=== PATIENT | female | born 1950 | race Caucasian/White ===

== ENCOUNTER 2018-06-26 05:57 | Day surgery (SDC) | payer MEDICARE ==
[2018-06-21 15:24] LABS: BASOPHILS % (AUTO) 0.4 % (0-1); EOSINOPHILS # (AUTO) 0.1 X10'3 (0-0.9); EOSINOPHILS % (AUTO) 1.7 % (0-6); LYMPHOCYTES # (AUTO) 1.2 X10'3 (1.1-4.8); LYMPHOCYTES % (AUTO) 15.6 % (21-51); MEAN CORPUSCULAR HEMOGLOBIN 31.8 PG (27.0-31.0); MEAN CORPUSCULAR VOLUME 93.4 FL (78-98); MEAN PLATELET VOLUME 7.6 FL (7.4-10.4); MONOCYTES # (AUTO) 0.5 X10'3 (0-0.9); MONOCYTES % (AUTO) 6.6 % (2-12); NEUTROPHILS # (AUTO) 5.6 X10'3 (1.8-7.7); NEUTROPHILS % (AUTO) 75.7 % (42-75); PRE OP HEMATOCRIT 39.8 % (35.0-45.0); PRE OP HEMOGLOBIN 13.6 g/dL (12.0-16.0); PRE OP PLATELET COUNT 333 X10'3 (140-440); RED BLOOD COUNT 4.26 X10'6 (4.20-5.60); RED CELL DISTRIBUTION WIDTH 13.8 % (11.5-14.5)
[2018-06-21 15:39] LABS: CLARITY,URINE CLEAR (Clear); COLOR,URINE STRAW (Yellow); GLUCOSE, URINE NEGATIVE (Neg); KETONES,URINE NEGATIVE (Neg); LEUKOCYTE ESTERASE ,URINE NEGATIVE (Neg); NITRITES, URINE NEGATIVE (Neg); OCCULT BLOOD,URINE NEGATIVE (Neg); PROTEIN,URINE NEGATIVE (Neg); UA COLLECTION TYPE NON-SPECIFIED; UROBILINOGEN,URINE 0.2 E.U/dL (0.2-1.0)
[2018-06-21 15:39] LABS: ALBUMIN 4.1 G/DL (3.4-5.0); ALBUMIN/GLOBULIN RATIO 1.2 (1.1-1.5); ALKALINE PHOSPHATASE 97 IU/L (46-116); BLOOD UREA NITROGEN 17 MG/DL (7-18); BUN/CREATININE RATIO 19.8 (6.6-38.0); CHLORIDE 103 MMOL/L (99-107); CREATININE 0.86 MG/DL (0.40-0.90); PRE OP ALT 19 U/L (30-65); PRE OP ANION GAP 7 (8-16); PRE OP AST 17 U/L (10-37); PRE OP BILIRUB, TOTAL 0.3 MG/DL (0.0-1.0); PRE OP GLUCOSE 99 MG/DL (70-104); PRE OP POTASSIUM 3.8 MMOL/L (3.4-5.1); PRE OP SODIUM 139 MMOL/L (135-145); TOTAL CARBON DIOXIDE 29.2 MMOL/L (24-32); TOTAL PROTEIN 7.6 G/DL (6.4-8.2); eGFR 66 ML/MIN
[~2018-06-26] VITALS: Ht 162.6 cm; Wt 71.4 kg
[2018-06-26] VITALS (17 sets, daily range): BP systolic 103–149; BP diastolic 60–97
[~2018-06-26 05:57] MED LIST: AMLO2.5T2 PO; ANAS1TAB PO; CHOL100046 PO; Cefazolin 2GM/50ML dext iso,osmotic IVPB IV ONE; FERR324T4 PO; LEVO75TA PO; LOSA50TA3 PO; OMEP20CA10 PO; VITA1TAB20 PO; famotidine 20mg tablet PO ONE; ringers solution, lacted 1,000 ML IV SCH
[2018-06-26] MEDS ORDERED: LIDOcaine 1% (10mg/ml) 2ml vial ONE (06:27)
[2018-06-26] MEDS ORDERED: BUPIVAcaine/PF 2.5mg/ml (0.25%) 10ml vial ONE (07:49)
[2018-06-26] MEDS ORDERED: sevoflurane 250ml liquid IH ONE (08:32)
[2018-06-26] MEDS ORDERED: fentaNYL/PF 50MCG/1 ML 2ML syringe ONE (08:33)
[2018-06-26] MEDS ORDERED: midazolam 2 mg/2 ml injection ONE (08:34)
[2018-06-26] MEDS ORDERED: propofol inj 20 ML IV ONE (08:34)
[2018-06-26] MEDS ORDERED: ondansetron/PF 4mg/2ml inj ONE (08:48)
[2018-06-26] MEDS ORDERED: dexamethasone sod phosphate 4mg/ml inj. ONE (08:48)
[2018-06-26] MEDS ORDERED: ROPIVAcaine 0.5% (5mg/ml) 30ml vial ONE (08:57)
[2018-06-26] MEDS ORDERED: ringers solution, lacted 1,000 ML IV SCH (09:37)
[2018-06-26] MEDS ORDERED: morphine 4 MG/ML inj SYRINge IV PRN ×2 (09:40)
[2018-06-26] MEDS ORDERED: meperidine/PF 25mg/ml syringe IV PRN ×2 (09:40)
[2018-06-26] MEDS ORDERED: ondansetron/PF 4mg/2ml inj IV PRN (09:40)
[2018-06-26] MEDS ORDERED: proCHLORperazine 10 MG/2 ml inj IV PRN (09:40)
[2018-06-26] MEDS: meperidine/PF 25mg/ml syringe IV PRN ×2 (11:27→12:06)
== END 2018-06-26 14:20 | disposition home or self-care (01) ==
LOC: PAS 05:57
PROVIDERS: ATTEND Surgery
DX: K64.8 Other hemorrhoids (principal); K64.4 Residual hemorrhoidal skin tags; G47.33 Obstructive sleep apnea (adult) (pediatric); I10 Essential (primary) hypertension; K21.9 Gastro-esophageal reflux disease without esophagitis; E03.9 Hypothyroidism, unspecified; Z85.3 Personal history of malignant neoplasm of breast; Z90.49 Acquired absence of other specified parts of digestive tract; Z90.89 Acquired absence of other organs; Z92.21 Personal history of antineoplastic chemotherapy; Z92.3 Personal history of irradiation; Z79.899 Other long term (current) drug therapy; Z98.890 Other specified postprocedural states
CPT/HCPCS: 36415; 45330; 46250; 46947; 80053; 81003; 85025; 93005; A6224; A6449; J0690; J1100; J2175; J2250; J2405; J2704; J2795; J3010; J3490; J7120; A7000

== ENCOUNTER 2022-06-15 08:51 | Day surgery (SDC) | payer MEDICARE ==
[~2022-06-15] VITALS: Ht 160 cm; Wt 77.3 kg
[~2022-06-15 08:51] MED LIST changes: -Cefazolin 2GM/50ML dext iso,osmotic IVPB IV ONE; -OMEP20CA10 PO; +OMEP20CA15 PO; -famotidine 20mg tablet PO ONE; -ringers solution, lacted 1,000 ML IV SCH
[2022-06-15 09:00] VITALS: BP 143/77
[2022-06-15] MEDS ORDERED: CHOL400T57 PO (09:07)
[2022-06-15] MEDS ORDERED: ATOR20TA PO (09:09)
[2022-06-15] MEDS ORDERED: MIDAZolam 1 MG/ML 5ML VIAL ONE (09:11)
[2022-06-15] MEDS ORDERED: fentaNYL/PF 50MCG/1 ML 2ML syringe ONE (09:11)
[2022-06-15 11:10] VITALS: BP 140/75
[2022-06-15 11:20] VITALS: BP 129/74
[2022-06-15 11:30] VITALS: BP 128/76
[2022-06-15 11:40] VITALS: BP 147/78
== END 2022-06-15 11:45 | disposition home or self-care (01) ==
LOC: GI LAB 08:51
PROVIDERS: ATTEND Internal Medicine Gastroenterology
DX: Z09 Encounter for follow-up examination after completed treatment for conditions other than malignant neoplasm (principal); K63.5 Polyp of colon; K57.30 Diverticulosis of large intestine without perforation or abscess without bleeding; K64.8 Other hemorrhoids; Z86.010 Personal history of colon polyps; I10 Essential (primary) hypertension; Z79.899 Other long term (current) drug therapy; Z98.890 Other specified postprocedural states
CPT/HCPCS: 45385; C1773; G0500; J2250; J3010; J7030; Z7512; 88305; 99152; 99153; A4620

== ENCOUNTER 2025-07-23 09:54 | Observation (INO) | payer MEDICARE ==
--- NOTE | 2025-07-21 15:04 | ELECTROCARDIOGRAPH REPORT ---
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 PÉREZ Sheppard Measurements Intervals Byron Rate: 68 P: 29 KS: 121 QRS: -38 QRSD: 116 T: 55 QT: 429 QTc: 457 Interpretive Statements Sinus rhythm Incomplete left bundle branch block Left ventricular hypertrophy Anterior Q waves, possibly due to LVH Electronically Signed On 07-21-2025 19:25:[address] PÉREZ Sheppard Please click the below link to view image of tracing.
[~2025-07-23] VITALS: Ht 160 cm; Wt 74.3 kg
[2025-07-23] VITALS (24 sets, daily range): BP systolic 102–153; BP diastolic 60–83; PULSE 67–96; RESP 11–20; TEMP 97.5–98.1; O2SAT 93–100
[2025-07-23] MEDS: ringers solution, lacted 1,000 ML IV SCH ×3 (09:15→16:30)
[~2025-07-23 09:54] MED LIST changes: -ANAS1TAB PO; -CHOL100046 PO; +CHOL200013 PO; -FERR324T4 PO; +FERR325T28 PO; +LEVO50TA8 PO; -LEVO75TA PO; +LOSA-416 PO; -LOSA50TA3 PO; +METF-900 PO; +ROSU10TA72 PO; +VITA-290 PO; -VITA1TAB20 PO; +enalaprilat 1.25mg/ml 2ml vial IV PRN; +labetalol 20mg/4ml (5mg/ml) syringe IV PRN; +meperidine/PF 25mg/ml syringe IV PRN; +morphine 4 MG/ML inj SYRINge IV PRN; +ondansetron/PF 4mg/2ml inj IV PRN
[2025-07-23] MEDS: ceFAZolin 2gm/dext,iso 50mL 50 ML IV ONE (10:35)
[2025-07-23 11:37] LABS: CREATININE 0.64 MG/DL (0.40-0.90); TOTAL CARBON DIOXIDE 26.5 MMOL/L (24-32); eCRCL 64 ML/MIN; eGFR > 90 ML/MIN
[2025-07-23] MEDS ORDERED: BUPIVAcaine/PF 2.5mg/ml (0.25%) 10ml vial ONE (11:38)
[2025-07-23] MEDS ORDERED: LIDOcaine 1% (10mg/ml)w/preservative inj. 20ml MDV ONE (11:38)
[2025-07-23] MEDS ORDERED: BUPIVACAINE liposomal/PF 13.3 MG/ML 10mL vial IM ONE (11:38)
[2025-07-23] MEDS ORDERED: methylene blue (5mg/ml) 50mg/10ml ampul IV ONE (11:38)
[2025-07-23] MEDS ORDERED: ROPIVAcaine 0.5% (5mg/ml) 30ml vial ONE (12:07)
[2025-07-23] MEDS ORDERED: fentaNYL/PF 50MCG/1 ML 2ML syringe ONE (12:07)
[2025-07-23] MEDS ORDERED: midazolam 1 mg/ML 2ml injection ONE (12:07)
[2025-07-23] MEDS ORDERED: propofol 10mg/ml 20ml vial IV ONE (13:23)
[2025-07-23] MEDS ORDERED: dexamethasone sod phosphate 4mg/ml inj. ONE (13:23)
--- NOTE | 2025-07-23 13:29 | ANESTHESIA RECORDS ---
Nerve Block Providers to ~ Diagnosis: Nerve Block requested by: VIVIANA SERRANO DO Neuraxial/Peripheral Nerve Block requested for Post-operative analgesia by Trish westbrook DIAGNOSIS: Post-operative pain. (Body Area) Shoulder: [ ] Arm: [ ] Hand: [ ] Hip: [ ] Knee: [ ] Ankle: [ ] Foot: [ ] Leg: [ ] Abdomen: [ ] Other: [ Lt Breast & Axillary area ] Post-operative pain expected to be/is inadequately managed by oral or IV medicines. Regional anesthetic expected to facilitate rehabilitation and/or discharge from facility. Other:[ _] Procedure Performed: Other: Left PEC I & PEC II block Time out Done?: Yes Time of Time out: 12:47 Procedure Details: PROCEDURE DETAILS: Risks, benefits and alternatives explained Informed consent obtained, and patient wishes to proceed Conscious sedation with indicated monitors Patient positioned, pertinent anatomy defined, sterile technique used Needle used: [ ] 3 1/8 inch Stimuplex Ultra 22ga [x ] 4 inch Stimuplex Ultra 20ga [ ] 6 inch Stimuplex Ultra 20ga [ ] 6 inch, Quikbloc over the needle catheter set 20ga [ ] 4 inch Quikbloc over the needle catheter set 20ga [ ]Other: [ ] Loss of twitch @ [ N/A ]mA [x ] Single Injection [ ] Catheter Ultrasound Guidance Used: [x ] Yes [ ] No Attempts:[ once ] Medicines injected: [ ]Clonidine Amt:[ ] [x ]Dexamethasone Amt:[___3 mgs ] [x ]Ropivacaine Amt:[___0.5% 30 cc ] [ ]Bupivacaine Amt:[ ] [ ]Lidocaine Amt:[ ] [ ]Exparel 1.33%:[ ] [ ]Epinephrine Amt[ ] [ ]Other: [ ] Intermittent aspiration during local anesthetic administration No symptoms of intraneural or intravenous injection Patient tolerated procedure well Comments Left PECS I & PECS II block Procedure done under General anesthesia. Left Arm abducted and Linear probe is applied parasagitally below the Coracoid process and probe slid down and the ribs were identifies. Pectorals Major & Minor and Serratus anterior muscles were identified. Stimuplex 4 needle was used and inserted in plane and 20 cc of local anesthetic injected in plane between Serratus anterior & Pectoralis minor. 10 ccs was injected in between Pectoralis major and minor muscles. Separation of muscles in the facial planes was noted. KEYLA PLATA MD Jul 23, 2025 13:29
[2025-07-23] MEDS ORDERED: morphine 10mg/ml inj. ONE (13:36)
[2025-07-23] MEDS: methylene blue (5mg/ml) 50mg/10ml ampul IV ONE (13:45)
[2025-07-23] MEDS: BUPIVACAINE liposomal/PF 13.3 MG/ML 10mL vial IM ONE (13:54)
[2025-07-23] MEDS: BUPIVAcaine/PF 2.5mg/ml (0.25%) 10ml vial IJ ONE (13:56)
[2025-07-23] MEDS ORDERED: ondansetron/PF 4mg/2ml inj ONE (16:02)
[2025-07-23] MEDS ORDERED: acetaminophen 1,000mg/100ml IV 100 ML IV ONE (16:08)
--- NOTE | 2025-07-23 16:46 | OPERATIVE REPORT ---
Operative Report Providers to CC: VIVIANA SERRANO DO ~ Date of Procedure: Jul 23, 2025 Pre-Operative Diagnosis: left breast cancer Post-Operative Diagnosis SAME as PRE-Op Procedure Performed Left breast simple mastectomy, left axillary sentinel node biopsy, right breast excisional biopsy Surgeon: Dr.Lauren Serrano [employer] Straightener Agnieszka Sanders PA-C Anesthesiologist: Ronak Camilo Type of Anesthesia: General Findings: left axillary sentinel lymph nodes x2, scar tissue left axilla and lower inner left breast Complications None Prosthetics\Implants used: None Estimated Blood Loss: Less than 15 mL Specimen Removed: 1. Left breast skin sparing mastectomy, suture marked short superior long lateral 2. Left axillary sentinel lymph node #1 3. Left axillary sentinel lymph node #2 4. Right breast excisional biopsy suture marked short superior long lateral double deep (specimen contains two STEPHANIE markers) Description of Procedure: Gale is a 74-year-old female with a past medical history of left breast invasive ductal carcinoma treated with lumpectomy followed by radiation and chemotherapy. She has a new diagnosis of left breast cancer in the plan is for left skin sparing mastectomy and left axillary sentinel lymph node biopsy and right breast excisional biopsy x2 for papillomas. She will follow up with plastic surgeon Dr. Suggs at [facility] for mohini flap reconstruction of the left breast. April she is here today with the in the preoperative holding area and was seen and evaluated by myself and the anesthesiologist. The left shoulder was marked with my initials indicating that I would be performing a sentinel lymph node biopsy. She was taken to the operative suite and placed on table in supine position with the arms extended. The anesthesiologist administered general anesthesia with an LMA. He also performed a pecs one and two block of the left chest wall. 3 mL of methylene blue dye was injected at the periareolar location 3:00 and massaged for 4 minutes. The gamma probe was used to detect a hot spot in the breast and the axilla and the skin was marked in the left axillary skin. I used the STEPHANIE insole and heel stiffener probe to scan the right breast and a signal was detected at the 9:00 area about 4 cm from the nipple and the skin was marked. I only detected one signal. The patient was prepped and draped in a sterile fashion a time-out was performed and agreed upon. I started the surgery with a left skin sparing mastectomy. An elliptical proposed incision was marked with the marking pen. The incision was made with a 10 blade and extended through the deep dermal layer with the cutting on the cautery. A superior flaps were elevated with cat claw retractors and I dissected in the subcutaneous plane medial and laterally down to the chest wall, just inferior to the clavicle. I turned my attention to the inferior flap and dissected in the subcutaneous space as the inferior flap was elevated with a cat claw retractors down to the chest wall. The breast mound and fascia was excised off the pectoralis muscle and serratus anterior in the superior and inferior medial and lateral directions. Once the specimen was completely excised it was taken off the field and marked with short stitch superior and long suture lateral. During the dissection there was a lot of scar tissue in the lower pole of the breast tissue especially in the lower inner quadrant at the previous lumpectomy site. The cavity was irrigated and hemostasis was achieved with Bovie electrocautery. I turned my attention to the left axillary sentinel lymph node biopsy. I scanned the lower axillary space with the gamma probe and a hot signal was detected. I dissected through the axillary fascia and grafts the tissue with a signal was noted with a tonsil clamp. The lymph node was excised with the LigaSure and removed from the cavity. The lymph node was hot and blue with a count of 815. A 2nd additional lymph node was excised in the upper aspect of the axilla inferior to the axillary vein it was completely excised with the LigaSure as well and it is count was 200. Both lymph nodes were removed and placed in formalin. The axillary cavity was irrigated and hemostasis was achieved with Bovie electrocautery the fascia was closed with 3-0 Vicryl interrupted sutures. A JAMIE drain was placed in the lower outer quadrant. The 15 blade was used to make a stab incision and the drain was pulled into the cavity with a tonsil clamp. The drain was secured to the skin with a 3-0 nylon suture. The skin was closed with 3-0 Vicryl interrupted sutures and a 4-0 Monocryl running subcuticular stitch. I turned my attention to the right excisional biopsy. I scanned the right breast at the 9:00 aspect of the breast approximately 5 cm from the nipple. I made a periareolar incision after injection of 1% lidocaine with a 15 blade. I used the STEPHANIE insole and heel stiffener probe to guide my dissection where there was a signal and eventually the signal came stronger and the distance shoulder to about 6-7 mm. I excised around the signal in a circumferential manner and the the complete specimen was removed from the cavity. I did not detect a 2nd signal. The specimen was oriented with short stitch superior, long suture lateral, double suture deep and placed in the specimen radiograph board. The board was placed in the fact that trauma machine. And there was evidence of two clips and two STEPHANIE markers, indicating that the two papillomas were in one specimen. The cavity was irrigated and there was some scar tissue that I felt in the posterior aspect of the cavity I excised it as a posterior margin I marked it suture marked the final margin. That was also placed in formalin. The cavity was copiously irrigated hemostasis was achieved with Bovie electrocautery and the cavity was approximated with 3-0 atiya Vicryl suture and the skin was closed with 3-0 Vicryl interrupted sutures and a 4-0 Monocryl running subcuticular stitch. 0.25% Marcaine and Exparel mixture was injected at both surgical sites. Dressings were placed on both wounds. I used the Prineo Dermabond mesh system for both wounds. Fluff dressings and ABDs were placed over the mastectomy site and gauze with tape was placed over the incision of the right breast. The patient was completely Roge wrapped and tolerated the procedure well was taken to recovery in stable condition. All needle sponge counts were correct. Counts repoted as correct: Yes VIVIANA SERRANO DO Jul 23, 2025 16:46
[2025-07-23] MEDS ORDERED: dextrose 50%-water 50ml dispensing syringe IV PRN ×2 (18:55)
[2025-07-23] MEDS ORDERED: glucagon, human recombinant 1mg kit SUBCUT PRN (18:55)
[2025-07-23] MEDS ORDERED: DEXTROSE 15 GM of carb/4 tabs (each vial/BOTTLE has 4 tablets) PO PRN ×2 (18:55)
--- NOTE | 2025-07-23 18:56 | CONSULTATION REPORT - RESIDENT ---
Consult Providers to CC Resident Creating Document: GÓMEZ BRANTLEY, RES CC: JOCELINE CAMARENA MD History of Present Illness Reason for Admit\Complaint: Medical management of patient with breast cancer status post surgery History of Present Illness A 74-year-old female with PMH of [id number]-[id number] diabetes mellitus, HTN, hypothyroidism was operated for breast cancer on 07/23/2025 and consulted for medical management of the patient. Patient underwent right mastectomy and left lymph node excision biopsy on 07/23/2025. We were consulted by Dr. Martínez to manage medical conditions of the patient. Patient underwent Lexiscan one year ago for nonspecific back pain and muscle soreness which was negative. Patient endorses that she had cancer in the right breast many years ago that was treated and was continuously being monitored for mammography which picked up repeat cancer in the right breast requiring mastectomy. Patient endorses that breast cancer runs on the maternal side of the family Patient does not have any complaints at the moment. Allergies: Coded Allergies: No Known Allergies (Unverified , 06/25/18) Home Medications Home Medications Active Reported Ferrous Sulfate* (Ferrous Sulfate) 325 Mg Tablet 1 Tab PO DAILY Rosuvastatin Calcium 10 Mg Tablet 20 Mg PO HS D3-2000 (Cholecalciferol (Vitamin D3)) 50 Mcg (2000 Unit) Capsule 1 Cap PO QAM Levothyroxine Sodium 50 Mcg Tablet 1 Tab PO QAM@0700 30 Days Metformin ER* (Metformin HCl) 500 Mg Tab.sr.24h 1 Tab PO QPM Omeprazole 20 Mg Capsule. 1 Cap PO DAILY 30 Days Vitamin B Complex 1 Each Tablet 1 Tab PO QAM Norvasc* (Amlodipine Besylate) 2.5 Mg Tablet 5 Mg PO QPM Cozaar* (Losartan Potassium) 50 Mg Tablet 100 Mg PO QPM Past Medical History Past Medical History Breast cancer Hypothyroidism HTN Wcc-jrblxlr-nmkeevupi diabetes mellitus LUCIUS on CPAP GERD Osteoarthritis of right knee Past Surgical History Surgical History Comment Right total knee arthroplasty Appendectomy Left breast lumpectomy Hemorrhoidectomy Hysterectomy Bilateral blepharoplasty Family History Family History: FH: CABG (coronary artery bypass surgery) FATHER FH: CVA (cerebrovascular accident) MOTHER Maternal grandmother FH: diabetes mellitus FATHER MOTHER Past Social History Social History Comment Lives at home with Primary care: Manuela Sheets, previously Dr. Gomez Denies tobacco use, alcohol use, marijuana or illicit drug use Was exposed to passive smoking as a child Dr. Grier(sleep apnea) Dr. Mauricio Reed Exam Vitals: Vital Signs Date Time Temp Pulse Resp B/P (MAP) Pulse Ox O2 Delivery O2 Flow Rate FiO2 07/23/25 18:30 79 17 133/74 (93) 94 Nasal Cannula 2.0 07/23/25 16:18 96.6 General: General: Moderately nourished Elderly female, Alert, awake, oriented, not in acute distress HEENT: PERRLA, no icterus, pallor, lymphadenopathy, carotid bruit Respiratory system: Surgical dressing present on the left and right breast, with a drain filled with blood about 20 mL on the right breast. Bilateral vesicular breath sounds heard, no adventitious breath sounds CVS: S1-S2 heard, no murmurs/rubs/gallop GI: Soft, nontender, no organomegaly, no guarding/rigidity, bowel sounds present Neuro: No focal neurological deficits present Extremities: No edema cyanosis clubbing/deformities Musculoskeletal: A surgical scar present in the right knee Skin: Warm and dry Psych: Normal affect and mood Diagnostic Data Last Recorded Lab Results: 07/23/25 1045 Additional Plan Assessment: A 74-year-old female with past medical history of NIDDM, HTN, hypothyroidism, sleep apnea on CPAP presented to the ED after right mastectomy and left lymph node excision biopsy. Hospitalist team was consulted for medical management of the patient. Plan: Right breast carcinoma s/p mastectomy, left LN excision biopsy on 07/23/[address] Martínez HTN Continue amlodipine 2.5 mg, losartan 50 mg Hypothyroidism Follow up with TSH Continue levothyroxine 50 mcg Wzl-cfwabsu-yrhpvtuqy diabetes mellitus A1c in Nov,: 6.1 Continue metformin 500 mg Q 24 H Low-dose sliding scale insulin HLD Continue rosuvastatin 20 mg p.o. HS LUCIUS on CPAP Outpatient follow up GERD Protonix 40 mg p.o. Code status: Full code Diet: 70 g carb controlled DVT prophylaxis: SCD Disposition: Hospitalist will continue to follow labs and follow up with the patient Gómez Brantley MD Internal Medicine, PGY 2 Date of Service: Jul 23, 2025 Billing Provider: JOCELINE CAMARENA MD, SIVA, RES Jul 23, 2025 18:56
[2025-07-23 20:30] LABS: CHOL/HDL RATIO 5.4 (0.00-4.99); LDL CHOLESTEROL 171 MG/DL (50-100)
[2025-07-23] MEDS ORDERED: non-formulary drug (Metformin Hcl* (Metformin ER*) 1 TAB) PO SCH (21:00)
[2025-07-23] MEDS: INSULIN LISPRO 100 UNIT/ML INSULN.PEN MULTI-DOSE SQ SCH (21:32)
[2025-07-23] MEDS: ceFAZolin 2gm/dext,iso 50mL 50 ML IV SCH (23:58)
[2025-07-24 03:48] VITALS: RESP 16; O2SAT 98
[2025-07-24 04:41] LABS: MEAN PLATELET VOLUME 8.2 FL (7.4-10.4); RED CELL DISTRIBUTION WIDTH 14.1 % (11.5-14.5)
[2025-07-24 06:00] VITALS: BP 108/61; PULSE 67; RESP 17; TEMP 97.4; O2SAT 97
[2025-07-24] MEDS ORDERED: pantoprazole 40mg Tablet.DR PO SCH (08:00)
[2025-07-24] MEDS ORDERED: VITAMIN B COMPLEX PO SCH (08:00)
[2025-07-24 08:22] VITALS: RESP 17; O2SAT 97
[2025-07-24] MEDS: cholecalciferol (vitamin D3) 1,000 unit (25mcg) tablet PO SCH (08:22)
[2025-07-24] MEDS: pantoprazole 40mg Tablet.DR PO SCH (08:22)
[2025-07-24] MEDS: levoTHYROXINE 25mcg tablet PO SCH (08:22)
[2025-07-24 08:39] VITALS: RESP 17; O2SAT 97
--- NOTE | 2025-07-24 09:25 | PROGRESS NOTE ---
Progress Note Dictate Providers to CC CC: VIVIANA SERRANO DO ~ Central Line/PICC still needed: N\A Antibiotic Ordered?: Yes If Yes, Indications: Surgical prophylaxis MRSA Education MRSA Education Provided to pt: N/A Subjective Subjective Tolerated diet, ambulated, denies pain Objective Vitals Vital Signs Date Time Temp Pulse Resp B/P (MAP) Pulse Ox O2 Delivery O2 Flow Rate FiO2 07/24/25 08:39 17 97 07/24/25 06:00 97.4 67 108/61 (77) Bi-pap/CPAP 07/24/25 03:48 2.0 Lab Results: 07/24/25 0423 07/23/25 1045 Objective Alert and oriented x 3 no acute distress Vss Breast: right breast no swelling, left chest bruising upper chest, swelling, JAMIE output 25 cc, dark sanguineous Ext: no cce Counseling Services Smoking & Tobacco Cessation: N/A Advance Care Planning Advanced Care planning: N/A Problem\Assessment\Plan Problems/Diagnosis: (1) Breast cancer in female Assessment & Plan: -left breast invasive ductal carcinoma and right breast papillomas -status post left breast simple mastectomy and left axillary sentinel lymph node biopsy and right breast excisional biopsy of papillomas postop day 1. -hypertension and diabetes mellitus -discharge home today with drain instructions, when cleared by IM team -has been prescribed [place] and antibiotics for home -continue to ambulate and use incentive spirometer -follow up with Dr. Serrano next week Problem Qualifiers (1) Breast cancer in female: Qualified Codes: C50.512 - Malignant neoplasm of lower-outer quadrant of left female breast; Z17.0 - Estrogen receptor positive status [ER+] VIVIANA SERRANO DO Jul 24, 2025 09:25
--- NOTE | 2025-07-24 09:36 | DISCHARGE SUMMARY ---
Discharge Summary Providers to CC CC: VIVIANA SERRANO DO ~ Discharge Summary Assessment Postop day #1, status post left breast insert mastectomy left axillary sentinel biopsy and right breast excisional biopsy Admission Diagnosis: left breast cancer Hospital Course DATE OF ADMISSION: 07/23/2025 DATE OF DISCHARGE: 07/24/2025 Discharge Diagnosis\Comment: Left breast cancer and right breast excisional biopsy Operations\Procedures: left breast skin sparing mastectomy left axillary sentinel biopsy and right breast excisional biopsy Consultants: Hospitalist Complications: None Condition on DC: Stable Discharge Summary: Gale is a 74-year-old female with a history of left breast triple negative cancer and now diagnosed with a new breast cancer, triple positive. She was di agnosed with right breast papillomas. She was seen and evaluated in the office and we discussed the risks and benefits alternatives to surgery and also the potential complications associated with surgery and was decided to have right breast excision biopsy of papillomas and left breast s again sparing mastectomy and left axillary sentinel lymph node biopsy. She had a pecs one and two block by the anesthesiologist of the left breast prior to surgery. She had an event uneventful surgery and was stable in recovery. Her overnight course was uneventful. She had an elevated blood sugar of 241 now down to 160 postop day 1. She had two doses of postop surgical prophylactic IV antibiotics. She tolerated her diet her pain is controlled. On physical examination today patient had mild swelling in the upper post-mastectomy space. The blood output in the JAMIE was 25 cc at the bedside dark sanguinous. Hemoglobin 11.1. Patient is okay for discharge home today when cleared by the internal medicine team. Follow up with Dr. Serrano and she used to record JAMIE output daily and take pain medication antibiotics as instruct *Problems/Diagnosis: (1) Breast cancer in female Assessment & Plan: -left breast invasive ductal carcinoma and right breast papillomas -status post left breast skin sparing mastectomy and left axillary sentinel lymph node biopsy and right breast excisional biopsy of papillomas postop day 1. -hypertension and diabetes mellitus -discharge home today with drain instructions, when cleared by IM team -has been prescribed [place] and antibiotics for home -continue to ambulate and use incentive spirometer -follow up with Dr. Serrano next week Total Time Spent on D/C: > 30 Minutes Counseling Services Smoking & Tobacco Cessation: N/A Problem Qualifiers (1) Breast cancer in female: Qualified Codes: C50.512 - Malignant neoplasm of lower-outer quadrant of left female breast; Z17.0 - Estrogen receptor positive status [ER+] VIVIANA SERRANO DO Jul 24, 2025 09:34
[2025-07-24] MEDS ORDERED: ATOR20TA66 PO (10:24)
[2025-07-24 10:48] VITALS: BP 132/69; PULSE 87; RESP 15; TEMP 97.9; O2SAT 96
== END 2025-07-24 14:02 | disposition home or self-care (01) ==
LOC: PAS 09:54 → SUR 3N 16:39
PROVIDERS: ADMIT Surgery; ATTEND Surgery
DX: C50.312 Malignant neoplasm of lower-inner quadrant of left female breast (principal); E03.9 Hypothyroidism, unspecified; E11.9 Type 2 diabetes mellitus without complications; I10 Essential (primary) hypertension; E78.00 Pure hypercholesterolemia, unspecified; E78.5 Hyperlipidemia, unspecified; D64.9 Anemia, unspecified; K21.9 Gastro-esophageal reflux disease without esophagitis; Z79.899 Other long term (current) drug therapy; Z98.890 Other specified postprocedural states
CPT/HCPCS: 19125; 19303; 38525; 76098; 80053; 80061; 82948; 83036; 84443; 93005; 96365; 96366; A4215; A4615; A4618; A7000; G0378; J0666; J0690; J1815; J3490; J7120; Q9968; 36415; 85025; 87081; 88307; 88341; 88342; A6253; A6258; A6449; C9250; J0131; J1100; J2175; J2250; J2274; J2405; J2704; J2795; J3010